=== PATIENT | male | born 1975 | race Caucasian/White ===

== ENCOUNTER 2017-04-26 07:58 | Emergency (ER) | payer MEDICAID ==
[~2017-04-26] VITALS: Ht 172.7 cm; Wt 83.0 kg
[2017-04-26] MEDS ORDERED: IBUPROFEN 400MG TABLET PO ONE (09:15)
[2017-04-26] MEDS ORDERED: ACETAMINOPHEN 500MG TABLET PO ONE (09:15)
[2017-04-26 10:40] VITALS: BP 114/69
== END 2017-04-26 10:41 | disposition home or self-care (01) ==
LOC: ER 08:14
DX: S39.012A Strain of muscle, fascia and tendon of lower back, initial encounter (principal); I10 Essential (primary) hypertension; M19.90 Unspecified osteoarthritis, unspecified site; V49.9XXA Car occupant (driver) (passenger) injured in unspecified traffic accident, initial encounter; Y93.89 Activity, other specified; Y99.8 Other external cause status; Y92.410 Unspecified street and highway as the place of occurrence of the external cause
CPT/HCPCS: 72100; 99284